=== PATIENT | female | born 1960 ===

== ENCOUNTER 2016-11-24 11:26 | Observation (INO) | payer MEDICAID ==
[2016-11-24 11:26] VITALS: BMI 24.2
[2016-11-24] MEDS ORDERED: Albuterol-Ipratrop 3 mg / 0.5 (3 ml) UD IH SCH (12:15)
--- NOTE | 2016-11-24 12:19 | C.PDOC ---
History Of Present Illness 56 y/o female with PMHx of Asthma, CVA, Bipolar Disorder, HTN and DM presents to ED with complaints of intermittent chest pain and chest tightness. Patient states she has been going through a lot of stress with personal issues and started smoking again. Patient denies fever, chills, sob, nausea, vomiting or any other complaints at this time. PSHx Brain tumor removed Time Seen by Provider: 11/24/16 11:53 Chief Complaint (Nursing): Chest Pain History Per: Patient History/Exam Limitations: no limitations Onset/Duration Of Symptoms: Days, Intermittent Episodes Current Symptoms Are (Timing): Still Present Quality: Tightness, "Pain" Past Medical History Reviewed: Historical Data, Nursing Documentation, Vital Signs Vital Signs: Last Vital Signs Temp 97.8 F 11/24/16 11:36 Pulse 72 11/24/16 14:06 Resp 18 11/24/16 14:06 BP 136/88 11/24/16 14:06 Pulse Ox 94 L 11/24/16 14:06 - Medical History PMH: Anxiety, Arthritis (wrist), Asthma, Bipolar Disorder, CAD, COPD (ASTHMA), Diabetes, HTN, Schizophrenia, Seizures Surgical History: Cholecystectomy, Coronary Stent (x2 2009,2011) Family History: States: No Known Family Hx - Social History Hx Tobacco Use: Yes Hx Alcohol Use: No Hx Substance Use: Yes (Marajuana use) - Immunization History Hx Tetanus Toxoid Vaccination: Yes Hx Influenza Vaccination: Yes Hx Pneumococcal Vaccination: Yes Review Of Systems Constitutional: Negative for: Fever, Chills Cardiovascular: Positive for: Chest Pain Respiratory: Negative for: Shortness of Breath Gastrointestinal: Negative for: Nausea, Vomiting Skin: Negative for: Rash Neurological: Negative for: Weakness, Numbness Physical Exam - Physical Exam Appears: Non-toxic, Other (Anxious appearing) Skin: Warm, Dry, No Rash Head: Atraumatic, Normacephalic Oral Mucosa: Moist Neck: Normal ROM, Supple Chest: Symmetrical Cardiovascular: Rhythm Regular Respiratory: No Rales, No Rhonchi, Wheezing (Bilateral) Gastrointestinal/Abdominal: Soft, No Tenderness, No Guarding, No Rebound Extremity: Normal ROM, No Pedal Edema Neurological/Psych: Oriented x3, Normal Motor, Normal Sensation ED Course And Treatment - Laboratory Results Result Diagrams: 11/24/16 12:39 11/24/16 12:39 O2 Sat by Pulse Oximetry: 98 (RA) Pulse Ox Interpretation: Normal Disposition Discussed With Dr.: Saurabh Gilliam Jr. Doctor Will See Patient In The: Hospital Counseled Patient/Family Regarding: Studies Performed - Disposition Disposition: HOSPITALIZED Disposition Time: 14:29 Condition: GUARDED Forms: [facility] (French) - Clinical Impression Clinical Impression: ACS (acute coronary syndrome) - Scribe Statement The provider has reviewed the documentation as recorded by the Scribblas Young All medical record entries made by the Scribe were at my direction and personally dictated by me. I have reviewed the chart and agree that the record accurately reflects my personal performance of the history, physical exam, medical decision making, and the department course for this patient. I have also personally directed, reviewed, and agree with the discharge instructions and disposition. Decision To Admit - Pt Status Changed To: Hospital Disposition Of: Observation - . Bed Request Type: Telemetry Patient Diagnosis: ACS (acute coronary syndrome)
[2016-11-24 12:43] LABS: BASO # 0.1 K/uL (0.0-0.2); EOS # 0.3 K/uL (0.0-0.7); HEMATOCRIT 40.2 % (34.0-47.0); LYMPH # 2.3 K/uL (1.0-4.3); LYMPH % 25.1 % (20.0-40.0); MEAN CELL VOLUME 89.1 fL (81.0-99.0); MEAN CORPUSCULAR HEMOGLOBIN 30.4 pg (27.0-31.0); MEAN CORPUSCULAR HGB CONC 34.1 g/dL (33.0-37.0); MONO # 0.6 K/uL (0.0-0.8); MONO % 6.9 % (0.0-10.0); NRBC % 0.1 % (0.0-2.0); RED CELL DISTRIBUTION WIDTH 13.4 % (11.5-14.5); WHITE BLOOD COUNT 9.3 K/uL (4.8-10.8)
[2016-11-24 13:01] LABS: CHLORIDE 100 mmol/L (98-107)
[2016-11-24 13:02] LABS: POTASSIUM 3.9 mmol/L (3.6-5.2); SODIUM 134 mmol/L (132-148)
[2016-11-24 13:04] LABS: ALB/GLOB RATIO 1.1 (1.0-2.1); ALKALINE PHOSPHATASE 91 U/L (38-126); AST/SGOT 16 U/L (14-36); BILIRUBIN,TOTAL 0.3 mg/dL (0.2-1.3); BLOOD UREA NITROGEN 18 mg/dL (7-17); CARBON DIOXIDE 23 mmol/L (22-30); CHOLESTEROL 118 mg/dL (0-199); GFR AFRICAN-AMERICAN > 60; GLUCOSE,RANDOM 306 mg/dL (65-105); TOTAL PROTEIN 7.6 g/dL (6.3-8.3)
[2016-11-24 13:05] LABS: ALT/SGPT 34 U/L (9-52); CALCIUM 9.5 mg/dl (8.6-10.4)
[2016-11-24] MEDS ORDERED: Albuterol-Ipratrop 3 mg / 0.5 (3 ml) UD ONE ×2 (13:05→13:14)
--- NOTE | 2016-11-24 14:11 | RAD ---
PROCEDURE: CHEST RADIOGRAPH, 1 VIEW HISTORY: SOB COMPARISON: Portable chest 11/20/2014. FINDINGS: LUNGS: Clear. PLEURA: No pneumothorax or pleural fluid seen. CARDIOVASCULAR: Normal. OSSEOUS STRUCTURES: No significant abnormalities. VISUALIZED UPPER ABDOMEN: Normal. OTHER FINDINGS: None. IMPRESSION: No interval acute cardiopulmonary disease appreciated.
[2016-11-24] MEDS ORDERED: Albuterol HFA 90 mcg/actuation (8 g) IH PRN (16:00)
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
[2016-11-24] MEDS: (Novolin R) Insulin Human Regular 100 units/ml vial SC SCH ×2 (17:15→22:18)
[2016-11-24 17:23] VITALS: RESP 20
[2016-11-24] MEDS ORDERED: Enoxaparin 60 mg Syringe SC SCH (22:00)
[2016-11-24] MEDS ORDERED: (Lantus) Insulin Glargine, Recombinant SC SCH (22:00)
--- NOTE | 2016-11-25 00:43 | CP.PCM.PCO ---
Physician Communication Note - Physician Communication Note Physician Communication Note: Thank you for referral. Pt will be seen by C/L team in the morning.
[2016-11-25 07:18] LABS: BASO # 0.1 K/uL (0.0-0.2); BASO % 0.6 % (0.0-2.0); EOS % 0.2 % (0.0-4.0); HEMATOCRIT 41.6 % (34.0-47.0); LYMPH # 1.7 K/uL (1.0-4.3); LYMPH % 15.6 % (20.0-40.0); MEAN CELL VOLUME 89.1 fL (81.0-99.0); MEAN CORPUSCULAR HEMOGLOBIN 30.6 pg (27.0-31.0); MEAN CORPUSCULAR HGB CONC 34.3 g/dL (33.0-37.0); MEAN PLATELET VOLUME 9.9 fL (7.2-11.7); MONO # 0.5 K/uL (0.0-0.8); MONO % 4.7 % (0.0-10.0); NRBC % 0.2 % (0.0-2.0); RED CELL DISTRIBUTION WIDTH 13.7 % (11.5-14.5); WHITE BLOOD COUNT 10.8 K/uL (4.8-10.8)
[2016-11-25 07:25] LABS: CHLORIDE 101 mmol/L (98-107); SODIUM 132 mmol/L (132-148)
[2016-11-25 07:27] LABS: ALB/GLOB RATIO 1.2 (1.0-2.1); AST/SGOT 16 U/L (14-36); BILIRUBIN,TOTAL 0.4 mg/dL (0.2-1.3); CARBON DIOXIDE 20 mmol/L (22-30); CHOLESTEROL 126 mg/dL (0-199); GFR AFRICAN-AMERICAN > 60; TOTAL PROTEIN 7.2 g/dL (6.3-8.3)
[2016-11-25 07:28] LABS: ALKALINE PHOSPHATASE 95 U/L (38-126); ALT/SGPT 25 U/L (9-52); BLOOD UREA NITROGEN 17 mg/dL (7-17); GLUCOSE,RANDOM 278 mg/dL (65-105)
[2016-11-25] MEDS: (Novolin R) Insulin Human Regular 100 units/ml vial SC SCH ×3 (09:04→17:14)
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
[2016-11-25] MEDS ORDERED: Influenza Vaccine 60 mcg/0.5 mL SYR (4YR UP) IM ONE (12:00)
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
[2016-11-25 18:04] VITALS: BP 118/64; PULSE 69; TEMP 98.3; O2SAT 93
[2016-11-26] MEDS ORDERED: Influenza Vaccine 60 mcg/0.5 mL SYR (4YR UP) IM ONE (10:00)
--- NOTE | 2016-11-26 11:54 | CARD ---
APPROVED REPORT EXAM: Two-dimensional and M-mode echocardiogram with Doppler and color Doppler. Other Information Quality : GoodRhythm : NSR INDICATION Chest Pain SUBSTANCE ABUSE, ASTHMA RISK FACTORS Hypertension Diabetes 2D DIMENSIONS IVSd1.0 (0.7-1.1cm)LVDd4.4 (3.9-5.9cm) PWd1.1 (0.7-1.1cm)LVDs2.9 (2.5-4.0cm) FS (%) 33.9 %LVEF (%)63.0 (>50%) M-Mode DIMENSIONS Left Atrium (MM)3.45 (2.5-4.0cm)Aortic Root3.00 (2.2-3.7cm) Aortic Cusp Exc.1.91 (1.5-2.0cm) Mitral Valve MV E Apfazwzs47.1cm/sMV A Hpxhiawh724.4cm/sE/A ratio0.9 TDI E/Lateral E'0.0E/Medial E'0.0 Tricuspid Valve TR Peak Rmytseis360hn/sTR Peak Gr.61uhVmABAW63foUs LEFT VENTRICLE The left ventricle is normal size. There is normal left ventricular wall thickness. The left ventricular function is normal. The left ventricular ejection fraction is within the normal range. There is normal LV segmental wall motion. The left ventricular diastolic function is normal. No left ventricle thrombus noted on this study. There is no ventricular septal defect visualized. There is no left ventricular aneurysm. There is no mass noted in the left ventricle. RIGHT VENTRICLE The right ventricle is normal size. There is normal right ventricular wall thickness. The right ventricular systolic function is normal. ATRIA The left atrium size is normal. The right atrium size is normal. The interatrial septum is intact with no evidence for an atrial septal defect. AORTIC VALVE The aortic valve is normal in structure. No aortic regurgitation is present. There is no aortic valvular stenosis. MITRAL VALVE The mitral valve is normal in structure. There is no mitral valve stenosis. There is no mitral valve regurgitation noted. TRICUSPID VALVE The tricuspid valve is normal in structure. There is no tricuspid valve regurgitation noted. PULMONIC VALVE The pulmonary valve is normal in structure. GREAT VESSELS The aortic root is normal in size. The ascending aorta is normal in size. The pulmonary artery is normal. The IVC is normal in size and collapses >50% with inspiration. PERICARDIAL EFFUSION There is no pericardial effusion. <Conclusion> normal studt. lv ef is 60%.
--- NOTE | 2016-11-26 11:58 | CARD ---
APPROVED REPORT EKG Measurement Heart [id number] <Conclusion> Normal sinus rhythm Septal infarct, age undetermined ST & T wave abnormality, consider lateral ischemia Abnormal ECG
--- NOTE | 2016-11-26 11:58 | CARD ---
APPROVED REPORT EKG Measurement Heart [id number] [place] 132P51 [id number] <Conclusion> Normal sinus rhythm Left ventricular hypertrophy with repolarization abnormality Cannot rule out Septal infarct, age undetermined Abnormal ECG
--- NOTE | 2016-11-26 12:24 | CARD ---
APPROVED REPORT EKG Measurement Heart [id number] [place] 132P40 [id number] <Conclusion> Normal sinus rhythm Septal infarct, age undetermined ST & T wave abnormality, consider lateral ischemia Abnormal ECG
--- NOTE | 2016-11-26 12:25 | CARD ---
APPROVED REPORT EKG Measurement Heart [id number] [place] 132P54 [id number] <Conclusion> Normal sinus rhythm Septal infarct, age undetermined ST & T wave abnormality, consider lateral ischemia Abnormal ECG
== END 2016-11-25 18:05 | disposition home or self-care (01) ==
LOC: C.ER 11:26 → C.9E 14:30 → C.6T 15:37
PROVIDERS: ADMIT Internal Medicine; ATTEND Internal Medicine
DX: R07.89 Other chest pain (principal); F31.9 Bipolar disorder, unspecified; F43.10 Post-traumatic stress disorder, unspecified; G40.909 Epilepsy, unspecified, not intractable, without status epilepticus; G47.00 Insomnia, unspecified; I10 Essential (primary) hypertension; F17.210 Nicotine dependence, cigarettes, uncomplicated; I25.10 Atherosclerotic heart disease of native coronary artery without angina pectoris; Z79.4 Long term (current) use of insulin; Z95.5 Presence of coronary angioplasty implant and graft
CPT/HCPCS: 36415; 71010; 80053; 80061; 80324; 80345; 80346; 80349; 80353; 80358; 80361; 82948; 83036; 83880; 83992; 84484; 85025; 93306; 94640; 99285; G0378; J1644; J1650; J2405

== ENCOUNTER 2017-03-29 18:41 | Emergency (ER) | payer MEDICAID ==
[2017-03-29 18:42] VITALS: BMI 24.2
[2017-03-29 19:32] VITALS: TEMP 97.6
[2017-03-29] MEDS ORDERED: Sodium Chloride 0.9% 1,000 ML IV ONE (20:15)
--- NOTE | 2017-03-29 20:16 | C.PDOC ---
History Of Present Illness 56 year old female presents to the ED for evaluation of elevated blood sugar levels which was noted today. Patient states she has been experiencing fever, generalized body aches, lightheadedness, dizziness, increased thirst, and increased urinary frequency for the past 2 days. Patient went to her PMD today for evaluation and was found to have elevated blood pressure of around 500. Patient denies syncopal episodes, vomiting, diarrhea and has no other complaints at this time. Chief Complaint (Nursing): High Blood Sugar History Per: Patient History/Exam Limitations: no limitations Onset/Duration Of Symptoms: Days Current Symptoms Are (Timing): Still Present Current Diabetic Medications: Insulin Associated Infectious Symptoms: Urinary Urgency Treatment Prior To Provider Evaluation: None Additional History Per: Patient Past Medical History Reviewed: Historical Data, Nursing Documentation, Vital Signs Vital Signs: Last Vital Signs Temp 97.6 F 03/29/17 22:55 Pulse 69 03/29/17 22:55 Resp 18 03/29/17 22:55 BP 138/80 03/29/17 22:55 Pulse Ox 99 03/29/17 22:55 - Medical History PMH: Anxiety, Arthritis (wrist), Asthma, Bipolar Disorder, CAD, COPD (ASTHMA), Diabetes, HTN, Schizophrenia, Seizures Surgical History: Cholecystectomy, Coronary Stent (x2 2009,2011) Family History: States: Diabetes - Social History Hx Tobacco Use: Yes Hx Alcohol Use: No Hx Substance Use: No (Marajuana use) - Immunization History Hx Tetanus Toxoid Vaccination: Yes Hx Influenza Vaccination: Yes Hx Pneumococcal Vaccination: Yes Review Of Systems Constitutional: Positive for: Fever, Other (elevated blood sugar ) Gastrointestinal: Negative for: Nausea, Vomiting Genitourinary: Positive for: Frequency Musculoskeletal: Positive for: Other (generalized body aches ) Neurological: Positive for: Dizziness, Other (lightheadedness ) Physical Exam - Physical Exam Appears: Non-toxic, No Acute Distress Skin: Normal Color, Warm, Dry Head: Atraumatic, Normacephalic Eye(s): bilateral: Normal Inspection Oral Mucosa: Moist Neck: Supple Chest: Symmetrical, No Deformity, No Tenderness Cardiovascular: Rhythm Regular, No Murmur Respiratory: Normal Breath Sounds, No Rales, No Rhonchi, No Wheezing Gastrointestinal/Abdominal: Soft, No Tenderness, No Guarding, No Rebound Extremity: Normal ROM, Capillary Refill (less than 2 seconds ) Neurological/Psych: Oriented x3, Normal Speech, Normal Cognition ED Course And Treatment - Laboratory Results Result Diagrams: 03/29/17 20:41 03/29/17 20:41 O2 Sat by Pulse Oximetry: 97 (on RA) Pulse Ox Interpretation: Normal Medical Decision Making Medical Decision Making: Progress: Bloodwork and EKG ordered and reviewed. Glucose count is currently 401. Will reassess after administering IV fluids and 8 units of insulin. Disposition - Disposition Referrals: [facility] [Outside] Disposition: HOME/ ROUTINE Disposition Time: 03:21 Condition: FAIR Instructions: Hyperglycemia, Adult Forms: Exam18 (Greenlandic) Print Language: VINCENTIAN - Clinical Impression Clinical Impression: Hyperglycemia - PA / BRIM EDGE TRIMMER / Resident Statement MD/DO has reviewed & agrees with the documentation as recorded. - Scribe Statement The provider has reviewed the documentation as recorded by the Scribe (Amirah Mcarthur) Provider Attestation: All medical record entries made by the Scribe were at my direction and personally dictated by me. I have reviewed the chart and agree that the record accurately reflects my personal performance of the history, physical exam, medical decision making, and the department course for this patient. I have also personally directed, reviewed, and agree with the discharge instructions and disposition.
[2017-03-29] MEDS ORDERED: (Novolin R) Insulin Human Regular 100 units/ml vial IV ONE (20:31)
[2017-03-29] MEDS ORDERED: Sodium Chloride 0.9% 1,000 ML ONE (20:38)
[2017-03-29] MEDS ORDERED: (Novolin R) Insulin Human Regular 100 units/ml vial ONE (20:39)
[2017-03-29 20:47] LABS: BASO # 0.1 K/uL (0.0-0.2); BASO % 0.9 % (0.0-2.0); EOS # 0.1 K/uL (0.0-0.7); EOS % 1.7 % (0.0-4.0); HEMOGLOBIN 14.1 g/dL (11.0-16.0); LYMPH # 2.1 K/uL (1.0-4.3); LYMPH % 34.2 % (20.0-40.0); MEAN CELL VOLUME 87.5 fL (81.0-99.0); MEAN CORPUSCULAR HEMOGLOBIN 30.1 pg (27.0-31.0); MEAN CORPUSCULAR HGB CONC 34.4 g/dL (33.0-37.0); MEAN PLATELET VOLUME 9.3 fL (7.2-11.7); MONO # 0.5 K/uL (0.0-0.8); MONO % 7.5 % (0.0-10.0); NEUT # 3.5 K/uL (1.8-7.0); NEUT % 55.7 % (50.0-75.0); RBC 4.7 Mil/uL (3.80-5.20); RED CELL DISTRIBUTION WIDTH 13.3 % (11.5-14.5); WHITE BLOOD COUNT 6.2 K/uL (4.8-10.8)
[2017-03-29 21:00] LABS: ALB/GLOB RATIO 1.2 (1.0-2.1); ALT/SGPT 21 U/L (9-52); AST/SGOT 15 U/L (14-36); BLOOD UREA NITROGEN 11 mg/dL (7-17); CALCIUM 9.5 mg/dl (8.6-10.4); GFR AFRICAN-AMERICAN > 60; GFR NON-AFRICAN AMERICAN > 60
[2017-03-29 22:56] VITALS: BP 138/80; PULSE 69; RESP 18
[2017-03-30 03:22] VITALS: O2SAT 97
--- NOTE | 2017-03-30 11:41 | CARD ---
APPROVED REPORT EKG Measurement Heart [id number] [place] 136P59 [id number] <Conclusion> Normal sinus rhythm Possible Left atrial enlargement Left ventricular hypertrophy with repolarization abnormality Septal infarct, age undetermined Abnormal ECG
== END 2017-03-29 22:57 | disposition home or self-care (01) ==
LOC: C.ER 18:41
DX: E11.65 Type 2 diabetes mellitus with hyperglycemia (principal); I10 Essential (primary) hypertension; I25.10 Atherosclerotic heart disease of native coronary artery without angina pectoris; Z95.5 Presence of coronary angioplasty implant and graft; Z87.891 Personal history of nicotine dependence
CPT/HCPCS: 80053; 82948; 85025; 93005; 96360; 99285; J7040

== ENCOUNTER 2017-11-01 16:29 | Emergency (ER) | payer MEDICAID, OTHER ==
[2017-11-01 16:29] VITALS: BMI 24.2
[2017-11-01 16:37] VITALS: O2SAT 98
--- NOTE | 2017-11-01 17:05 | C.PDOC ---
History Of Present Illness 57 yr old female w/ hx of CAD, [place], stroke w/ L sided deficits, recent surgery of varicose veins on left p/w accidental ingestion of non-industrial, [email or web address] grade chlorox at 0930. She notes she was taking her pills at a friends house when she picked up a clear glass with roughly 1/4 a glassfull of clear liquid, noted it tasted funny and then immediately spit it out. She notes her water cup was the same cup as the chlorox bottle from the supermarket and filled to the same amount. She denies any dysphagia or coughing or spitting or airway issues but notes some change in phonation. No chest pain or sob. No abdominal pain or N /V. She notes drinking milk afterwards without issue. No other complaints Time Seen by Provider: 11/01/17 16:56 Chief Complaint (Nursing): Ingestion, Accidental Past Medical History Vital Signs: Last Vital Signs Temp 98 F 11/01/17 16:31 Pulse 76 11/01/17 16:31 Resp 18 11/01/17 16:31 BP 174/78 H 11/01/17 16:31 Pulse Ox 98 11/01/17 18:09 - Medical History PMH: Anxiety, Arthritis (wrist), Asthma, Bipolar Disorder, CAD, COPD (ASTHMA), Diabetes, HTN, Schizophrenia, Seizures Surgical History: Cholecystectomy, Coronary Stent (x2 2009,2011) Family History: States: Diabetes - Social History Hx Tobacco Use: Yes Hx Alcohol Use: No Hx Substance Use: No (Marajuana use) - Immunization History Hx Tetanus Toxoid Vaccination: Yes Hx Influenza Vaccination: Yes Hx Pneumococcal Vaccination: Yes Review Of Systems Constitutional: Negative for: Fever Eyes: Negative for: Pain ENT: Negative for: Ear Pain, Ear Discharge, Nose Pain, Nose Congestion, Mouth Pain, Mouth Swelling, Throat Pain, Throat Swelling, Other Cardiovascular: Negative for: Chest Pain, Palpitations, Orthopnea Respiratory: Negative for: Cough, Shortness of Breath Gastrointestinal: Negative for: Nausea, Vomiting, Abdominal Pain, Diarrhea, Constipation Genitourinary: Negative for: Dysuria, Frequency, Hematuria Musculoskeletal: Negative for: Neck Pain Skin: Negative for: Rash Neurological: Negative for: Weakness, Numbness Psych: Negative for: Anxiety, Depression, Psychosis, Suicidal ideation, Withdrawal Physical Exam - Physical Exam Appears: Well, No Acute Distress Skin: Normal Color, Warm, Dry Head: Atraumatic, Normacephalic Eye(s): bilateral: Normal Inspection, PERRL, EOMI Nose: Normal, No Flaring Oral Mucosa: Moist, No Dry, No Drooling, No Trismus Tongue: Normal Appearing, No Swelling, No Lesions, No Bite, No Laceration, No Bleeding, No Fissured, No Erythema Lips: Normal Appearing, No Swelling, No Contusion, No Abrasion, No Laceration, No Lesions, No Erythema, No Pale Gingiva: Normal Appearing, No Erythema, No Ulceration, No Swelling, No Tender, No Bleeding, No Abscess Throat: Normal, No Erythema, No Exudate, No Drooling, No Mass, Other (uvula midline) Neck: Normal, Trachea Midline, No Paracervical Tenderness, No Step Off De formity, Supple Cardiovascular: Rhythm Regular Respiratory: Normal Breath Sounds Gastrointestinal/Abdominal: Normal Exam Back: Normal Inspection Extremity: Normal ROM ED Course And Treatment - Laboratory Results Result Diagrams: 11/01/17 17:22 11/01/17 17:22 O2 Sat by Pulse Oximetry: 98 Medical Decision Making Medical Decision Makin yr old female w/ hx of CAD, [place], Stroke w/ L sided deficits, recent varicose vein surgery p/w accidental ingestion of chlorox. No sob. No nausea or vomiting. No oropharygeal redness. Slight change in voice per pt but no dysphagia or burning sensation. 1747 appreciate consult w/ Poison control [place]: Julita: Pt is clear per their standpoint if labs unremarkable. Household chlorox rarely presents an issue, especially if patient tolerating swallow. Pt notes she drank milk earlier without issue. 1931 labs unremarkable, resting comfortably, clear for d/c home Disposition - Disposition Disposition Time: 19:35 Condition: GOOD Forms: [facility] (Fijian) - Clinical Impression Clinical Impression: Accidental ingestion of substance
[2017-11-01 17:33] LABS: BASO # 0.1 K/uL (0.0-0.2); BASO % 0.7 % (0.0-2.0); EOS # 0.2 K/uL (0.0-0.7); EOS % 2.3 % (0.0-4.0); HEMOGLOBIN 13.8 g/dL (11.0-16.0); LYMPH # 1.9 K/uL (1.0-4.3); MEAN CELL VOLUME 87.2 fL (81.0-99.0); MEAN CORPUSCULAR HEMOGLOBIN 30.6 pg (27.0-31.0); MEAN CORPUSCULAR HGB CONC 35.1 g/dL (33.0-37.0); MEAN PLATELET VOLUME 9.4 fL (7.2-11.7); MONO # 0.5 K/uL (0.0-0.8); MONO % 6.7 % (0.0-10.0); NEUT % 65.3 % (50.0-75.0); NRBC % 0.2 % (0.0-2.0); RBC 4.5 Mil/uL (3.80-5.20); RED CELL DISTRIBUTION WIDTH 14.2 % (11.5-14.5); WHITE BLOOD COUNT 7.7 K/uL (4.8-10.8)
[2017-11-01 17:43] LABS: PROTHROMBIN TIME 10.8 SECONDS (9.7-12.2)
[2017-11-01 17:45] LABS: ALB/GLOB RATIO 1.3 (1.0-2.1); ALBUMIN 4.2 g/dL (3.5-5.0); ALT/SGPT 32 U/L (9-52); AST/SGOT 16 U/L (14-36); BLOOD UREA NITROGEN 12 mg/dL (7-17); CALCIUM 9.8 mg/dl (8.6-10.4); GFR NON-AFRICAN AMERICAN > 60; LIPASE 41 U/L (23-300)
[2017-11-01 17:48] LABS: ACETAMINOPHEN < 10.0 ug/mL (10.0-30.0); SALICYLATE < 1.0 mg/dL 1
[2017-11-01 19:58] VITALS: BP 161/84; PULSE 71; RESP 16; TEMP 97.9
== END 2017-11-01 20:19 | disposition home or self-care (01) ==
LOC: C.ER 16:29
DX: T54.91XA Toxic effect of unspecified corrosive substance, accidental (unintentional), initial encounter (principal)

== ENCOUNTER 2018-03-03 08:57 | Emergency (ER) | payer OTHER ==
[2018-03-03 09:11] VITALS: BMI 28.3
[2018-03-03 09:14] VITALS: RESP 18
[2018-03-03 10:28] VITALS: BP 135/77; PULSE 58; TEMP 97.6; O2SAT 95
--- NOTE | 2018-03-03 10:58 | C.PDOC ---
History Of Present Illness 57y/o female, whose past medical history includes stroke and residual left sided weakness, presents to the ED for evaluation of left shoulder pain which began around 8 days ago. Patient states she was trying to open a window that was stuck when her symptoms began. Patient has been taking Tylenol without relief She denies any falls, any new numbness/weakness, chest pain, and shortness of breath at this time. Patient states she is left hand dominant. Chief Complaint (Nursing): Upper Extremity Problem/Injury History Per: Patient History/Exam Limitations: no limitations Onset/Duration Of Symptoms: Days (8) Current Symptoms Are (Timing): Still Present Quality: "Pain" Additional History Per: Patient Past Medical History Reviewed: Historical Data, Nursing Documentation, Vital Signs Vital Signs: Last Vital Signs Temp 97.6 F 03/03/18 10:27 Pulse 58 L 03/03/18 10:27 Resp 18 03/03/18 10:27 BP 135/77 03/03/18 10:27 Pulse Ox 95 03/03/18 10:27 - Medical History PMH: Anxiety, Arthritis, Asthma, Bipolar Disorder, CAD, COPD (ASTHMA), Diabetes, HTN, Schizophrenia, Seizures Surgical History: Cholecystectomy, Coronary Stent (x2 2009,2012) Family History: States: Diabetes - Social History Hx Tobacco Use: Yes Hx Alcohol Use: No Hx Substance Use: Yes (Marijuana use) - Immunization History Hx Tetanus Toxoid Vaccination: No Hx Influenza Vaccination: Yes Hx Pneumococcal Vaccination: No Review Of Systems Musculoskeletal: Positive for: Shoulder Pain (left) Neurological: Negative for: Weakness, Numbness Physical Exam - Physical Exam Appears: Non-toxic, No Acute Distress Skin: Normal Color, Dry, No Ecchymosis Head: Atraumatic, Normacephalic Eye(s): bilateral: Normal Inspection Extremity: No Normal ROM (decreased range of motion to beyond 90 degrees, secondary to pain ), Tenderness (point, to left anterior shoulder ), Capillary Refill (less than 2 seconds ) Pulses: Left Radial: Normal, Right Radial: Normal Neurological/Psych: Oriented x3, Normal Speech, Normal Cognition, Normal Sensation ED Course And Treatment O2 Sat by Pulse Oximetry: 95 (on RA) Pulse Ox Interpretation: Normal - Other Rad left shoulder XR X-Ray: Viewed By Me, Read By Radiologist Interpretation: PROCEDURE: Radiographs of the Left Shoulder. HISTORY: pain x 8days s/p lifting window. COMPARISON: No prior. FINDINGS: BONES: No acute displaced fracture. The distal clavicle and underlying ribs appear intact. JOINTS: No acute dislocation. SOFT TISSUES: Soft tissues appear unremarkable. No evidence of radiopaque foreign body. Partially imaged cardiomegaly. Atherosclerotic calcifications of the included aorta. IMPRESSION: No acute displaced fracture or dislocation evident. If symptoms persist or if there is continued clinical concern, x-ray follow-up in 7-10 days should be considered. Medical Decision Making Medical Decision Making: Impression: 57 year old female with left shoulder pain Plan: * left shoulder XR * Motrin PO * reassess and disposition Progress: Left shoulder XR ordered and reviewed. Results are unremarkable. Tylenol PO given. On reassessment, patient is resting comfortably, showing no signs of distress and reports an improvement in her pain. Patient is stable for discharge and is advised to follow up with her PMD within 1-2 days for further evaluation. Disposition Counseled Patient/Family Regarding: Studies Performed, Diagnosis, Need For Followup - Disposition Referrals: Teresa Forman MD [Medical Doctor] - Disposition: HOME/ ROUTINE Disposition Time: 11:01 Condition: STABLE Instructions: Muscle Strain (DC) Forms: [facility] (Greenlandic), General Discharge Instructions - Clinical Impression Clinical Impression: Shoulder strain - Scribe Statement The provider has reviewed the documentation as recorded by the Scribe (Amirha Mcarthur) Provider Attestation: All medical record entries made by the Scribe were at my direction and personally dictated by me. I have reviewed the chart and agree that the record accurately reflects my personal performance of the history, physical exam, medical decision making, and the department course for this patient. I have also personally directed, reviewed, and agree with the discharge instructions and disposition.
== END 2018-03-03 11:15 | disposition home or self-care (01) ==
LOC: C.ER 08:57
DX: S46.912A Strain of unspecified muscle, fascia and tendon at shoulder and upper arm level, left arm, initial encounter (principal); X50.0XXA Overexertion from strenuous movement or load, initial encounter